=== PATIENT | male | born 1980 | race African-American/Black ===

== ENCOUNTER 2021-08-31 17:36 | Emergency (ER) | payer OTHER, SELFPAY ==
[2021-08-31 17:46] VITALS: BP 133/97; PULSE 123; RESP 14; TEMP 36.4; O2SAT 98; BMI 20.9
[2021-08-31 18:05] LABS: UR Morphine/Opiate cutoff 300 Negative (Negative); Ur Creatinine Normal (Normal); Ur Specific Gravity Normal (Normal); Urine Amphetamines Negative (Negative); Urine Barbiturates Negative (Negative); Urine Benzodiazepines Negative (Negative); Urine Cocaine Negative (Negative); Urine MDMA Negative (Negative); Urine Methadone Negative (Negative); Urine Methamphetamines Negative (Negative); Urine Oxycodone Negative (Negative); Urine Phencyclidine Negative (Negative); Urine Tetrahydrocannabinol Negative (Negative); Urine Tricyclic Antidepressant Negative (Negative); Urine pH Normal (Normal)
[2021-08-31 18:15] LABS: Add Manual Diff / Slide Review NO; Basophils Absolute Auto 100 /uL (0-100); Basophils Percent Auto 3.9 % (0-2); Eosinophils Absolute Auto 100 /uL (0-450); Eosinophils Percent Auto 2.1 % (2-4); Hematocrit 43.6 % (41-53); Hemoglobin 14.8 g/dL (13.5-17.5); Lymphocytes Absolute Auto 1600 /uL (1100-4500); Lymphocytes Percent Auto 51.6 % (25-40); Mean Corpuscular HGB Conc 33.9 % (30-36); Mean Corpuscular Hemoglobin 28.6 PG (26-34); Mean Corpuscular Volume 84.4 fL (80-100); Monocytes Absolute Auto 100 /uL (0-900); Monocytes Percent Auto 4.1 % (3-14); Neutrophils Absolute Auto 1200 /uL (1500-7000); Neutrophils Percent Auto 38.3 % (50-75); Platelet Count 324 X10^3/uL (150-400); Red Blood Cell Count 5.16 X10^6/uL (4.5-5.9); Red Cell Distribution Width 13.7 % (11.6-14.8); White Blood Cell Count 3.1 X10^3/uL (4.5-11.0)
[2021-08-31 18:36] LABS: Acetaminophen < 10 ug/mL (10-30); Alanine Aminotransferase 53 IU/L (<50); Albumin Globulin Ratio 1.2 (1.0-2.8); Alkaline Phosphatase 61 U/L (38-126); Aspartate Aminotransferase 66 IU/L (17-59); BUN Creatinine Ratio 16.3 (6-22); Bilirubin Total 0.6 mg/dL (0.2-1.3); Blood Urea Nitrogen 14 mg/dL (9-20); Calcium 9.2 mg/dL (8.4-10.2); Carbon Dioxide 30 mmol/L (22-32); Chloride 102 mmol/L (98-107); Estimated Glomerular Filt Rate > 60.0 mL/min (>60); Ethanol (ETOH) > 300 mg/dL; Globulin 4.2 g/dL (1.7-4.1); Glucose 116 mg/dL (70-100); HEMOLYSIS < 15 (0-50); Potassium 3.9 mmol/L (3.4-5.1); Salicylate < 1.0 mg/dL (<20); Sodium 145 mmol/L (137-145); Total Protein 9.2 g/dL (6.3-8.2)
[2021-08-31 18:52] LABS: Free T4, Direct Thyroxine 0.78 ng/dL (0.78-2.19)
[2021-08-31 19:05] LABS: Thyroid Stimulating Hormone 0.843 uIU/mL (0.47-4.68)
--- NOTE | 2021-08-31 20:54 | ED_ITS ---
HPI - Psych <DO Stefano Puentes Last Filed: 09/04/21 18:07> General Chief Complaint: Psychiatric Symptoms Stated Complaint: wants mental health eval Time Seen by Provider: 08/31/21 20:29 Source: patient Mode of arrival: Ambulatory History of Present Illness HPI Narrative: Patient is a 40-year-old male. 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 Was brought in by his command for mental health evaluation. Patient does have history of depression. Is on medication for this. [place] Has never had thoughts of suicide in the past. Has never attempted suicide. Has never been admitted to the hospital. Denies any drugs. Did drink alcohol prior to arrival. He states he made comments to his command about thoughts of hurting himself. No specific plan. He did not try to hurt himself today. He states that these thoughts stemmed from relationship issues that he has been having with a ex-. He does live by himself. Does not have access to guns. He states that he is currently not suicidal. He states he only made these comments ?to get them off my back ?patient states that he does not feel like he needs admitted to the hospital for these symptoms. Related Data Previous Rx's Medication Instructions Recorded ondansetron 4 mg disintegrating 4 mg PO TID-QID PRN #10 tab 09/01/21 tablet Allergies Allergy/AdvReac Type Severity Reaction Status Date / Time No Known Drug Allergies Allergy Verified 08/31/21 17:46 Review of Systems <DO Stefano Puentes Last Filed: 09/04/21 18:07> Cardiovascular Cardiovascular: Denies chest pain and Denies dyspnea Respiratory Respiratory: Denies dyspnea Gastrointestinal Gastrointestinal: Denies abdominal pain Psychiatric Psychiatric: Reports system reviewed and no additional complaints, except as documented and Reports as per HPI Hematologic/Lymphatic On Anticoagulants: No Patient History <DO Stefano Puentes Last Filed: 09/04/21 18:07> Medical History Depression Social History Smoking Status: Current every day smoker Smoking Status: Current every day smoker alcohol intake frequency: a few times a week Substance Use Type: does not use Exam <DO Stefano Puentes Last Filed: 09/04/21 18:07> Initial Vital Signs Initial Vital Signs: Vital Signs Temperature 97.5 F L 08/31/21 17:46 Pulse Rate 123 H 08/31/21 17:46 Respiratory Rate 14 08/31/21 17:46 Blood Pressure 133/97 H 08/31/21 17:46 Pulse Oximetry 98 08/31/21 17:46 HENMT Head: normal to inspection and normocephalic Resp Effort & Inspection: normal respiratory effort Cardio Rate: regular rate GI Inspection: normal to inspection Neuro General: patient alert, patient awake, patient oriented x3 and moves all extremities Extrem General: normal to inspection Psych Mental Status: mental status grossly normal Speech and Movement: speech and movement normal, not agitated and speech not pressured Mood: congruent mood Affect: normal affect Thought Content: no homicidality and suicidality Judgment: fair <Celso Potter DO - Last Filed: 09/01/21 19:56> Initial Vital Signs Initial Vital Signs: Vital Signs Temperature 97.5 F L 08/31/21 17:46 Pulse Rate 123 H 08/31/21 17:46 Respiratory Rate 14 08/31/21 17:46 Blood Pressure 133/97 H 08/31/21 17:46 Pulse Oximetry 98 08/31/21 17:46 Course <Donnell Whyte, DO - Last Filed: 09/04/21 18:07> Orders Ordered: Discontinued Medications Hydroxyzine Pamoate (Hydroxyzine Pamoate 25 Mg Capsule) 25 mg PO NOW ONE Stop: 08/31/21 21:02 Last Admin: 08/31/21 21:15 Dose: 25 mg Documented by: SBALDW Sodium Chloride (Normal Saline 0.9%) 1,000 mls @ 1,000 mls/hr IV BOLUS ONE Stop: 09/01/21 13:18 Last Infusion: 09/01/21 16:39 Dose: 0 mls/hr Documented by: Admin: 09/01/21 14:04 Dose: 1,000 mls/hr Documented by: DONNA Ondansetron HCl (Ondansetron 4 Mg/2 Ml Inj) 4 mg IV NOW ONE Stop: 09/01/21 12:20 Last Admin: 09/01/21 14:04 Dose: 4 mg Documented by: LUCAR Pantoprazole Sodium (Pantoprazole 40 Mg Vial) 40 mg IV NOW ONE Stop: 09/01/21 12:20 Last Admin: 09/01/21 14:04 Dose: 40 mg Documented by: DONNA Vital Signs Vital signs: Vital Signs - 8 hr 09/01/21 17:10 Pulse Rate 79 Respiratory Rate 18 Blood Pressure 139/88 Pulse Oximetry 98 <Celso Potter DO - Last Filed: 09/01/21 19:56> Orders Ordered: Discontinued Medications Hydroxyzine Pamoate (Hydroxyzine Pamoate 25 Mg Capsule) 25 mg PO NOW ONE Stop: 08/31/21 21:02 Last Admin: 08/31/21 21:15 Dose: 25 mg Documented by: SHELBY Sodium Chloride (Normal Saline 0.9%) 1,000 mls @ 1,000 mls/hr IV BOLUS ONE Stop: 09/01/21 13:18 Last Infusion: 09/01/21 16:39 Dose: 0 mls/hr Documented by: Admin: 09/01/21 14:04 Dose: 1,000 mls/hr Documented by: DONNA Ondansetron HCl (Ondansetron 4 Mg/2 Ml Inj) 4 mg IV NOW ONE Stop: 09/01/21 12:20 Last Admin: 09/01/21 14:04 Dose: 4 mg Documented by: DONNA Pantoprazole Sodium (Pantoprazole 40 Mg Vial) 40 mg IV NOW ONE Stop: 09/01/21 12:20 Last Admin: 09/01/21 14:04 Dose: 40 mg Documented by: DONNA Vital Signs Vital signs: Vital Signs - 8 hr 09/01/21 17:10 Pulse Rate 79 Respiratory Rate 18 Blood Pressure 139/88 Pulse Oximetry 98 [facility] - Psych <Donnell Whyte DO - Last Filed: 09/04/21 18:07> Lab Data Attestation: I reviewed the patient's lab results. Result diagrams: 08/31/21 18:02 08/31/21 18:02 Labs: Lab Results 08/31/21 08/31/21 08/31/21 Range/Units 17:54 18:02 18:02 WBC 3.1 L (4.5-11.0) X10^3/uL RBC 5.16 (4.5-5.9) X10^6/uL Hgb 14.8 (13.5-17.5) g/dL Hct 43.6 (41-53) % MCV 84.4 (80-100) fL MCH 28.6 (26-34) PG MCHC 33.9 (30-36) % RDW 13.7 (11.6-14.8) % Plt Count 324 (150-400) X10^3/uL Neut % (Auto) 38.3 L (50-75) % Lymph % (Auto) 51.6 H (25-40) % [place] % (Auto) 4.1 (3-14) % Eos % (Auto) 2.1 (2-4) % Baso % (Auto) 3.9 H (0-2) % Neut # (Auto) 1200 L (7580-1195) /uL Lymph # (Auto) 1600 (3171-2534) /uL [place] # (Auto) 100 (0-900) /uL Eos # (Auto) 100 (0-450) /uL Baso # (Auto) 100 (0-100) /uL Sodium 145 (137-145) mmol/L Potassium 3.9 (3.4-5.1) mmol/L Chloride 102 (98-107) mmol/L Carbon Dioxide 30 (22-32) mmol/L BUN 14 (9-20) mg/dL Creatinine 0.86 (0.66-1.25) mg/dL Estimated GFR > 60.0 (>60) mL/min BUN/Creatinine Ratio 16.3 (6-22) Glucose 116 H (70-100) mg/dL Calcium 9.2 (8.4-10.2) mg/dL Total Bilirubin 0.6 (0.2-1.3) mg/dL AST 66 H (17-59) IU/L ALT 53 H (<50) IU/L Alkaline Phosphatase 61 (38-126) U/L Total Protein 9.2 H (6.3-8.2) g/dL Albumin 5.0 (3.5-5.0) g/dL Globulin 4.2 H (1.7-4.1) g/dL Albumin/Globulin Ratio 1.2 (1.0-2.8) TSH (0.47-4.68) uIU/mL Free T4 (0.78-2.19) ng/dL Salicylates < 1.0 (<20) mg/dL U Opiates 300ng/mL cut Negative (Negative) Ur Oxycodone Screen Negative (Negative) Urine Methadone Screen Negative (Negative) Acetaminophen < 10 L (10-30) ug/mL Ur Barbiturates Screen Negative (Negative) U Tricyclic Antidepress Negative (Negative) Ur Phencyclidine Scrn Negative (Negative) Ur Amphetamines Screen Negative (Negative) U Methamphetamines Scrn Negative (Negative) Ur MDMA Scrn (Ecstasy) Negative (Negative) U Benzodiazepines Scrn Negative (Negative) Urine Cocaine Screen Negative (Negative) U Marijuana (THC) Screen Negative (Negative) Ethyl Alcohol > 300 H ( - 10) mg/dL 08/31/21 09/01/21 Range/Units 18:02 08:25 WBC (4.5-11.0) X10^3/uL RBC (4.5-5.9) X10^6/uL Hgb (13.5-17.5) g/dL Hct (41-53) % MCV (80-100) fL MCH (26-34) PG MCHC (30-36) % RDW (11.6-14.8) % Plt Count (150-400) X10^3/uL Neut % (Auto) (50-75) % Lymph % (Auto) (25-40) % [place] % (Auto) (3-14) % Eos % (Auto) (2-4) % Baso % (Auto) (0-2) % Neut # (Auto) (9673-9817) /uL Lymph # (Auto) (9633-7339) /uL [place] # (Auto) (0-900) /uL Eos # (Auto) (0-450) /uL Baso # (Auto) (0-100) /uL Sodium (137-145) mmol/L Potassium (3.4-5.1) mmol/L Chloride (98-107) mmol/L Carbon Dioxide (22-32) mmol/L BUN (9-20) mg/dL Creatinine (0.66-1.25) mg/dL Estimated GFR (>60) mL/min BUN/Creatinine Ratio (6-22) Glucose (70-100) mg/dL Calcium (8.4-10.2) mg/dL Total Bilirubin (0.2-1.3) mg/dL AST (17-59) IU/L ALT (<50) IU/L Alkaline Phosphatase (38-126) U/L Total Protein (6.3-8.2) g/dL Albumin (3.5-5.0) g/dL Globulin (1.7-4.1) g/dL Albumin/Globulin Ratio (1.0-2.8) TSH 0.843 (0.47-4.68) uIU/mL Free T4 0.78 (0.78-2.19) ng/dL Salicylates (<20) mg/dL U Opiates 300ng/mL cut (Negative) Ur Oxycodone Screen (Negative) Urine Methadone Screen (Negative) Acetaminophen (10-30) ug/mL Ur Barbiturates Screen (Negative) U Tricyclic Antidepress (Negative) Ur Phencyclidine Scrn (Negative) Ur Amphetamines Screen (Negative) U Methamphetamines Scrn (Negative) Ur MDMA Scrn (Ecstasy) (Negative) U Benzodiazepines Scrn (Negative) Urine Cocaine Screen (Negative) U Marijuana (THC) Screen (Negative) Ethyl Alcohol < 10 ( - 10) mg/dL MDM Narrative Medical decision making narrative: Patient does admit to drinking alcohol and his alcohol level was elevated. He states that he was brought here by his command. He does not specifically want to be here although he is willing to be evaluated. He states that he is not currently suicidal. He has never tried to hurt himself in the past. He states he does feel safe at home. I did offer to have him stay in the emergency department this evening in order for him to metabolize his alcohol which he agreed to do. He was given a dose of hydroxyzine to help him sleep. Care turned over to Dr. Potter. <Celso Potter DO - Last Filed: 09/01/21 19:56> Lab Data Labs: Lab Results 08/31/21 08/31/21 08/31/21 Range/Units 17:54 18:02 18:02 WBC 3.1 L (4.5-11.0) X10^3/uL RBC 5.16 (4.5-5.9) X10^6/uL Hgb 14.8 (13.5-17.5) g/dL Hct 43.6 (41-53) % MCV 84.4 (80-100) fL MCH 28.6 (26-34) PG MCHC 33.9 (30-36) % RDW 13.7 (11.6-14.8) % Plt Count 324 (150-400) X10^3/uL Neut % (Auto) 38.3 L (50-75) % Lymph % (Auto) 51.6 H (25-40) % [place] % (Auto) 4.1 (3-14) % Eos % (Auto) 2.1 (2-4) % Baso % (Auto) 3.9 H (0-2) % Neut # (Auto) 1200 L (8450-4820) /uL Lymph # (Auto) 1600 (9097-8864) /uL [place] # (Auto) 100 (0-900) /uL Eos # (Auto) 100 (0-450) /uL Baso # (Auto) 100 (0-100) /uL Sodium 145 (137-145) mmol/L Potassium 3.9 (3.4-5.1) mmol/L Chloride 102 (98-107) mmol/L Carbon Dioxide 30 (22-32) mmol/L BUN 14 (9-20) mg/dL Creatinine 0.86 (0.66-1.25) mg/dL Estimated GFR > 60.0 (>60) mL/min BUN/Creatinine Ratio 16.3 (6-22) Glucose 116 H (70-100) mg/dL Calcium 9.2 (8.4-10.2) mg/dL Total Bilirubin 0.6 (0.2-1.3) mg/dL AST 66 H (17-59) IU/L ALT 53 H (<50) IU/L Alkaline Phosphatase 61 (38-126) U/L Total Protein 9.2 H (6.3-8.2) g/dL Albumin 5.0 (3.5-5.0) g/dL Globulin 4.2 H (1.7-4.1) g/dL Albumin/Globulin Ratio 1.2 (1.0-2.8) TSH (0.47-4.68) uIU/mL Free T4 (0.78-2.19) ng/dL Salicylates < 1.0 (<20) mg/dL U Opiates 300ng/mL cut Negative (Negative) Ur Oxycodone Screen Negative (Negative) Urine Methadone Screen Negative (Negative) Acetaminophen < 10 L (10-30) ug/mL Ur Barbiturates Screen Negative (Negative) U Tricyclic Antidepress Negative (Negative) Ur Phencyclidine Scrn Negative (Negative) Ur Amphetamines Screen Negative (Negative) U Methamphetamines Scrn Negative (Negative) Ur MDMA Scrn (Ecstasy) Negative (Negative) U Benzodiazepines Scrn Negative (Negative) Urine Cocaine Screen Negative (Negative) U Marijuana (THC) Screen Negative (Negative) Ethyl Alcohol > 300 H ( - 10) mg/dL 08/31/21 09/01/21 Range/Units 18:02 08:25 WBC (4.5-11.0) X10^3/uL RBC (4.5-5.9) X10^6/uL Hgb (13.5-17.5) g/dL Hct (41-53) % MCV (80-100) fL MCH (26-34) PG MCHC (30-36) % RDW (11.6-14.8) % Plt Count (150-400) X10^3/uL Neut % (Auto) (50-75) % Lymph % (Auto) (25-40) % [place] % (Auto) (3-14) % Eos % (Auto) (2-4) % Baso % (Auto) (0-2) % Neut # (Auto) (1106-8630) /uL Lymph # (Auto) (6888-6147) /uL [place] # (Auto) (0-900) /uL Eos # (Auto) (0-450) /uL Baso # (Auto) (0-100) /uL Sodium (137-145) mmol/L Potassium (3.4-5.1) mmol/L Chloride (98-107) mmol/L Carbon Dioxide (22-32) mmol/L BUN (9-20) mg/dL Creatinine (0.66-1.25) mg/dL Estimated GFR (>60) mL/min BUN/Creatinine Ratio (6-22) Glucose (70-100) mg/dL Calcium (8.4-10.2) mg/dL Total Bilirubin (0.2-1.3) mg/dL AST (17-59) IU/L ALT (<50) IU/L Alkaline Phosphatase (38-126) U/L Total Protein (6.3-8.2) g/dL Albumin (3.5-5.0) g/dL Globulin (1.7-4.1) g/dL Albumin/Globulin Ratio (1.0-2.8) TSH 0.843 (0.47-4.68) uIU/mL Free T4 0.78 (0.78-2.19) ng/dL Salicylates (<20) mg/dL U Opiates 300ng/mL cut (Negative) Ur Oxycodone Screen (Negative) Urine Methadone Screen (Negative) Acetaminophen (10-30) ug/mL Ur Barbiturates Screen (Negative) U Tricyclic Antidepress (Negative) Ur Phencyclidine Scrn (Negative) Ur Amphetamines Screen (Negative) U Methamphetamines Scrn (Negative) Ur MDMA Scrn (Ecstasy) (Negative) U Benzodiazepines Scrn (Negative) Urine Cocaine Screen (Negative) U Marijuana (THC) Screen (Negative) Ethyl Alcohol < 10 ( - 10) mg/dL MDM Narrative Medical decision making narrative: Patient does admit to drinking alcohol and his alcohol level was elevated. He states that he was brought here by his command. He does not specifically want to be here although he is willing to be evaluated. He states that he is not currently suicidal. He has never tried to hurt himself in the past. He states he does feel safe at home. I did offer to have him stay in the emergency department this evening in order for him to metabolize his alcohol which he agreed to do. He was given a dose of hydroxyzine to help him sleep. Care turned over to Dr. Potter. Patient received in signout. I have performed an independent history and physical. There has been no recurrence of SI. He has no SI or HI. He has been seen by COMPOUNDING AND FINISHING SUPERVISOR who shares the opinion that he is safe for discharge. He is amb ulatory through the department, nausea is improved and he is tolerating orals. Return precautions discussed questions answered to his apparent satisfaction Discharge Plan Departure Patient Disposition: Home Clinical Impression: Depression, Alcohol abuse Instructions: Depression Activity Restrictions/Additional Instructions: *You have been diagnosed with [depression, alcohol abuse *What to do: *Please continue to take your regular medications as directed. [ ] New medication prescriptions sent to your pharmacy: [ ] [x] New medication written as a paper prescription [ ] No new medications given *Please follow up with your primary care provider in 2-3 days, call for an appointment. Let them know you were seen in the Emergency Department and that we ask that you be seen in follow up. We will electronically transmit a record of today's note if your PCP is in our system *If you do not have a primary care provider please contact the [facility] Resource line at [phone]. They will ask some questions about your medical history and help get you set up with a doctor in the community. *Return to Emergency Department if you should have any new, worsening or concerning symptoms, such as [fever greater than 101 F, shaking chills, worsening pain, persistent vomiting or other bothersome symptoms] Prescriptions: New ondansetron 4 mg tablet,disintegrating 4 mg PO TID-QID PRN (Reason: nausea and vomiting) Qty: 10 0RF Referrals: [facility], [place] [Outside] [facility] [Outside]
[2021-08-31] MEDS: hydrOXYzine pamoate 25 MG CAPSULE PO (21:15)
[2021-08-31 21:31] VITALS: BP 118/64; PULSE 73; O2SAT 98
[2021-09-01 00:50] VITALS: BP 121/61; PULSE 76; RESP 16; O2SAT 98
[2021-09-01 08:52] LABS: Ethanol (ETOH) < 10 mg/dL
--- NOTE | 2021-09-01 12:59 | CM.SWNOTE ---
PROCESS CONTROL SPECIALIST Assessment PROCESS CONTROL SPECIALIST - Regasification Plant Operator Assessment PROCESS CONTROL SPECIALIST/Regasification Plant Operator Assessment Time Spent with Patient Start date 09/01/21 Visit Start Time 12:00 End date 09/01/21 Visit End Time 12:20 Total time Care Management spent on 20 patient visit-in minutes Mental Health Screening Include Onset, Duration, Intensity Presenting Problem Patient presents to the ED last night via commanding [employer] chief after drinking vodka and endorsing that he wants to hurt himself. Last evening patient had an BAL ETOH above 300. Precipitating Event(s) Patient endorses that he is concerned he may be kicked out of the [employer] after 19 years due to inappropriate text messages with someone. Patient states he will go before a board to determine if will be kicked out or not. Patient states that his left him in May after his recent deployment and his is currently living alone. Patient Strengths Patient set up appts to meet with counselor at [facility]. Patient states he wants to get better and is seeking help. Current Behavioral Health Provider(s) [facility] Include Facility, Provider, Ph. # - provider (Ph. # Psych. Hx Mental Health and Chemical Patient endorses hx of Dependency depression. Patient endorses rx of Lexapro and Hydroxyzine. Patient endorses ETOH use last night and does not recall how much vodka he drank, but denies regular ETOH use. Patient denies use of other substances. Family Hx of Behavioral Abuse None reported Psychiatric Hospitalizations (date(s)/ No Hx. location) Patient declines wanting to go to inpatient hospital. Psychosocial information & Support Patient is 40 y/o male who Systems lives in [place] and currently lives alone since May when his and kids moved out. Patient denies friends since his recent incident in the and states that his mother and father are supports but they reside in [place]. School/Work Patient is active in the Legal Concerns Legal Matters - Outstanding Issues None reported Mental Status Orientation (Person/Place/Time) A/Ox4 Stated Mood Not feeling well Affect (Congruent with Mood?) Flat, euthymic, stable Thought Content - Specify/Describe Patient endorses visual and Obsessions, Delusions, Hallucinations auditory hallucinations. Patient states he sees people and it seems real, I know it' s not. Patient states that people talk to me and sometimes it scares him and makes him feel unsafe, but patient cannot explain why when asked. Thought Processes (Zwlicae-Gkmzbhfq-Ajxm coherent Tiluycfl-Jjmskizi-Wqevteefqe- Vnxvbbzyyuiyov-Dlwrald-Vvapzandsojl- Thought Blocking) Speech (Drsfqn-Gobt-Ccgszrt-Rapid-Soft- normal Loud-Pressured) Motor (Mivjye-Jffohrdso-Kujw-Other) slow/normal, not formally assessed. Patient is laying down Insight (Bwlx-Nahm-Vvsg/Limited) fair Judgment (Qoag-Slpu-Exzu/Limited) fair Impulse Control (Adequate-Impaired) adequate during assessment Memory (Ipitlmphj-Vrhrfc-Ntecjq, intact, not formally assessed Impaired-Intact) Concentration (Intact-Impaired) intact Attention (Intact-Impaired) intact Behavior (Appropriate-Inappropriate) appropriate Additional Comment Patient is calm and communicative. Risk Assessment Suicidal Ideation (Plan) No Homicidal Ideation (Plan) No Comment Patient denies HI. Patient denies SI with plan. Patient endorses that he told his chief yesterday that he feels like hurting himself. Patient states he thinks about ending his suffering but denies plan to kill self and states today I do not want to kill myself. Intervention Intervention PROCESS CONTROL SPECIALIST enters room to meet with patient. Patient states his current life stressors and endorses that last night he drank a lot of vodka and he does not recall how much. Patient states he does not recall telling his chief he wanted to hurt himself but his chief brought him to the ED for this concern. Patient denies SI and HI. Patient states he sees a MH provider at [facility] and has an upcoming appt. Patient denies wanting to go to [facility] for inpatient hospitalization. Patient endorses that he feels safe at home but due to feeling sick, nauseous, and it is hard to walk request to stay at this ED one more night. PROCESS CONTROL SPECIALIST discusses that this may not be an option due to lack of medical necessity. PROCESS CONTROL SPECIALIST states that PROCESS CONTROL SPECIALIST will inform ED provider about his request and concern. It is the opinion of this PROCESS CONTROL SPECIALIST that patient is safe to d/c to home when medically clear. PROCESS CONTROL SPECIALIST reviews the above with ED provider Dr. Potter who indicates agreement and understanding. Plan RA Plan Patient to d/c to home when medically clear. ED team to contact [employer] commanding chief regarding plan of d/c. Patient to f/u with MH provider at upcoming appt. NANCY Sanchez
[2021-09-01] MEDS: ONDANSETRON 4 MG/2 ML INJ IV (14:04)
[2021-09-01] MEDS: SODIUM CHLORIDE 0.9% 1,000 ML 1000 ML IV (14:04)
[2021-09-01] MEDS: PANTOPRAZOLE 40 MG VIAL IV (14:04)
[2021-09-01 17:10] VITALS: BP 139/88; PULSE 79; RESP 18; O2SAT 98
== END 2021-09-01 17:10 | disposition home or self-care (01) ==
PROVIDERS: Emergency Medicine; Emergency Provider Emergency Medicine
DX: F32.A Depression, unspecified (principal); F10.129 Alcohol abuse with intoxication, unspecified; Y90.8 Blood alcohol level of 240 mg/100 ml or more
CPT/HCPCS: 36415; 80053; 80305; 80320; 80329; 84439; 84443; 85025; 96361; 96374; 96375; 99284; C9113; G0480; J2405

== ENCOUNTER → 2022-11-01 08:02 | Outpatient (CLI) | payer OTHER, SELFPAY ==
--- NOTE | 2022-11-01 | DI.US.S_ITS ---
PROCEDURE: US INJECT OR DRAIN JOINT INDICATIONS: pain in right shoulder TECHNIQUE: The indications, alternatives, benefits, risks, and complications of the procedure were explained to the patient. Written informed consent was obtained and placed in the chart. The patient was placed in an appropriate position on the fluoroscopy table, and a site was chosen for percutaneous access under ultrasound guidance. Local anesthetic was administered using a 1% lidocaine solution. A hypodermic or spinal needle was then used to access the symptomatic joint. Intra-articular location of the needle tip was confirmed by real time ultrasound imaging, followed by steroid administration. The needle was then withdrawn, and a bandage applied to the puncture site. FINDINGS: Side injected: Left long head biceps tendon Medications injected: 1.5 mL of 40 mg/mL Kenalog and 0.5% Ropivacaine mixture. Patient's pain before injection: 6 of 10. Patient's pain after injection: 3 of 10. Complications: None. IMPRESSION: Successful ultrasound guided administration of steroid and anaesthetic solution into the biceps tendon sheath. Dictated by: Andres Thompson M.D. on 11/01/2022 at 11:47 Approved by: Andres Thompson M.D. on 11/01/2022 at 11:48
== END ==
PROVIDERS: Referring Provider Orthopaedic Surgery; Visit Provider Orthopaedic Surgery
DX: M25.511 Pain in right shoulder (principal)
CPT/HCPCS: 20611

== ENCOUNTER → 2023-05-18 08:11 | Outpatient (CLI) | payer OTHER, SELFPAY ==
--- NOTE | 2023-05-18 | DI.ECHO.S_ITS ---
[facility] +---------+ : : [address] [place] : : : : [id number] : : : : Phone: [phone]---------+ Echocardiogram Report + + :Name: JAYDA LANDERS JR Study Date: 05/18/2023 Height: 71 in : :[facility] ReadingLocation: Weight: 150 lb : : Gender: Male BSA: 1.9 m2 : :: 1980 Age: 42 yrs BP: 134/93 mmHg: :Reason For Study: Cardiac Murmur : :Ordering Physician: RIAZ, : :SYLVIA Performed By: Pamela Oliveira : :Referring: SYLVIA MELLO : + + Interpretation Summary The ejection fraction is estimated to be 55-60%. Diastolic parameters suggest probable normal left ventricular diastolic function and normal filling pressures. The right ventricle is normal in size and function. There is mild aortic regurgitation. Pulmonary artery pressures cannot be estimated because of the lack of a measurable TR jet velocity but the IVC suggests a CVP of around 3 mmHg. There is a trivial pericardial effusion noted. Procedure: A two-dimensional transthoracic echocardiogram with color flow and Doppler was performed. The study quality was technically good. There is no prior echocardiogram noted for this patient. The patient was in normal sinus rhythm during the exam. Left Ventricle: The left ventricle is normal in size. The ejection fraction is estimated to be 55-60%. Diastolic parameters suggest probable normal left ventricular diastolic function and normal filling pressures. Right Ventricle: The right ventricle is normal in size and function. Atria: Both atria are normal in size. There is no Doppler evidence for an interatrial shunt. Mitral Valve: The mitral valve is normal in structure but abnormal in function. There is no mitral valve stenosis. There is trace mitral regurgitation. Aortic Valve: The aortic valve is trileaflet. The aortic valve opens well. There is no aortic valve stenosis. There is mild aortic regurgitation. Tricuspid Valve: The tricuspid valve is normal. There is no tricuspid stenosis. There is trace tricuspid regurgitation. Pulmonary artery pressures cannot be estimated because of the lack of a measurable TR jet velocity but the IVC suggests a CVP of around 3 mmHg. Pulmonic Valve: The pulmonic valve leaflets are thin and pliable; valve motion is normal. There is no pulmonic valvular stenosis. There is mild pulmonic regurgitation. Great Vessels: The aortic root is mildly dilated. The ascending aorta is normal in size. The pulmonary artery is normal size. The IVC is of normal diameter and collapses greater than 50% with a sniff. This suggests a low right atrial pressure of 3 mm Hg. Pericardium/ Pleura There is a trivial pericardial effusion noted. MMode/2D Measurements & Calculations LVIDd: 5.1 cm LVOT diam: 2.4 cm LVIDs: 3.5 cm Ao root diam: 4.1 cm FS: 31.4 % asc Aorta Diam: 3.5 cm IVSd: 0.70 cm LVPWd: 0.80 cm LV garcias. diameter/BSA (cm/m^2): 2.7 LV sys. diameter/BSA (cm/m^2): 1.9 LA A2 area: 15.4 cm2 RA long axis: 5.4 cm LA A4 area: 18.1 cm2 RA area: 20.3 cm2 LA length (vol): 4.2 cm RA vol: 65.4 ml LA vol: 56.7 ml RA : 35.0 ml/m2 LA vol index: 30.4 ml/m2 IVC diam: 1.9 cm RVD1 (basal): 3.7 cm LVLs ap4: 6.2 cm LVLd ap2: 8.5 cm TAPSE_phl: 2.4 cm LVLs ap2: 7.2 cm Doppler Measurements & Calculations Ao V2 max: 100.5 cm/sec LVOT Max Roberth: 72.8 cm/sec Ao V2 mean: 70.6 cm/sec LV V1 max P.1 mmHg Ao max P.0 mmHg LV V1 VTI: 15.3 cm Ao mean P.3 mmHg STEVE(I,D): 3.5 cm2 Ao V2 VTI: 19.8 cm STEVE(V,D): 3.3 cm2 sev ratio: 0.77 STEVE indexed to BSA (cm^2/m^2): 1.9 MV E max roberth: 69.4 cm/sec TR max roberth: 194.0 cm/sec MV A max roberth: 50.0 cm/sec TR max P.1 mmHg MV E/A: 1.4 PA V2 max: 83.4 cm/sec Med Peak E' Roberth: 12.9 cm/sec PA V2 mean: 58.2 cm/sec E/E' med: 5.4 PA mean P.0 mmHg Lat Peak E' Roberth: 18.7 cm/sec PA pr(Accel): 19.6 mmHg E/E' lat: 3.7 E/e' average: 4.5 MV dec time: 0.23 sec SV(LVOT): 69.2 ml AV VR_phl: 0.72 STEVE(VTI)/BSA_phl: 1.9 Reading Physician:01:02 PM
== END ==
PROVIDERS: Referring Provider Chiropractor; Visit Provider Chiropractor
DX: I35.1 Nonrheumatic aortic (valve) insufficiency (principal); I37.1 Nonrheumatic pulmonary valve insufficiency; I77.810 Thoracic aortic ectasia; R01.1 Cardiac murmur, unspecified
CPT/HCPCS: 93306